=== PATIENT | female | born 1970 | race Hispanic/Latino ===

== ENCOUNTER 2017-04-09 10:50 | Outpatient (CLI) | payer OTHER ==
[2017-04-09 12:18] LABS: Urine Drugs of Abuse Note Disclamer
[2017-04-09 12:28] LABS: Bilirubin,Urine NEG (Negative); Blood,Urine NEG (Negative); Ketones,Urine NEG (Negative); Leukocyte Esterase,Urine NEG (Negative); Mucus,Urine FEW /HPF; Nitrite,Urine NEG (Negative); Urobilinogen,Urine < 2.0 mg/dL (<2.0)
[2017-04-09 13:36] LABS: Basophils % (Auto) 0.1 % (0.0-1.8); Eosinophils % (Auto) 0.9 % (0.0-4.3); Hematocrit 36.6 % (30.3-42.9); Hemoglobin 12.5 gm/dl (10.1-14.3); Mean Corpuscular HGB Conc 34 % (30-34); Mean Corpuscular Hemoglobin 31 pg (28-32); Mean Corpuscular Volume 92 fl (79-97); Platelet Count 198 K/mm3 (140-440); Red Blood Count 3.98 M/mm3 (3.65-5.03); White Blood Count 10.8 K/mm3 (4.5-11.0)
[2017-04-09 14:07] LABS: HIV-1 Antigen p24 Non React (Non React); HIVR-1/2 Ab Non React (Non React)
--- NOTE | 2017-04-09 14:29 | Ultrasound Report ---
BIOPHYSICAL PROFILE: 2 - breathing movements 2 - movements 2 - posture and tone 2 - Qualitative amniotic fluid volume 8 - TOTAL SCORE OF POSSIBLE 8 Heart Rate (bpm) 125
--- NOTE | 2017-04-09 14:48 | Ultrasound Report ---
Gestation: single Position: cephalic Amniotic Fluid: NIMESH = 14.9 cm Placenta: fundal Placental Grade: 2 Heart Rate: 125 BPM BPD: 9.1 cm = 36 w 5 d HC: 34 cm = 39 w 1 d AC: 30.3 cm = 34 w 2 d FL: 6.8 cm = 35 w 2 d HC/AC Ratio: 1.12 Cephalic Index: 79.4 Estimated Weight: 2650 grams Clinical age = 38 w 3 d EDC: 04/18/2017 US Gest. Age = 36 w 3 d EDC: 05/04/17
[2017-04-09 15:09] LABS: HIV-1 Antigen p24 Non React (Non React); HIVR-1/2 Ab Non React (Non React)
== END 2017-04-09 17:14 | disposition home or self-care (01) ==
LOC: TRG 10:50
PROVIDERS: ATTEND Obstetrics & Gynecology
DX: O09.523 Supervision of elderly multigravida, third trimester (principal); O36.0930 Maternal care for other rhesus isoimmunization, third trimester, not applicable or unspecified; O47.1 False labor at or after 37 completed weeks of gestation; Z3A.38 38 weeks gestation of pregnancy
CPT/HCPCS: 36415; 59025; 76816; 76819; 80074; 80307; 81001; 82962; 85025; 85461; 86592; 86762; 86850; 86900; 86901; 87806; 96372; J2790

== ENCOUNTER 2017-04-14 23:22 | Outpatient (CLI) | payer OTHER ==
[2017-04-14 23:47] VITALS: BP 121/79
--- NOTE | 2017-04-15 09:57 | Ultrasound Report ---
Gestation: single Position: cephalic Amniotic Fluid: NIMESH = 8.2 cm Placenta: fundal Placental Grade: 2 Heart Rate: 123 BPM Anatomy: Stomach Kidneys Bladder Diaphragm 4 Chamber Heart Heart 3 Vessel Cord SPINE VISUALIZED: Longitudinal Transverse Limited spine due to position The following are not demonstrated due to maternal body habitus BPD: 9.2 cm = 37 w 3 d HC: 34.1 cm = 39 w 2 d AC: 31.7 cm = 35 w 4 d FL: 7.2 cm = 37 w 0 d HC/AC Ratio: 1.08 Cephalic Index: 79.7 Estimated Weight: 2972 grams LMP: 07/12/16 Clinical age = 39 w 4 d EDC: 04/18/17 US Gest. Age = 37 w 2 d EDC: 05/04/17
== END 2017-04-15 01:10 | disposition home or self-care (01) ==
LOC: TRG 23:22
PROVIDERS: ATTEND Obstetrics & Gynecology
DX: O09.523 Supervision of elderly multigravida, third trimester (principal); O62.9 Abnormality of forces of labor, unspecified; Z3A.39 39 weeks gestation of pregnancy
CPT/HCPCS: 76805

== ENCOUNTER 2017-04-15 14:46 | Inpatient (IN) | payer OTHER ==
--- NOTE | 2017-04-15 15:11 | History and Physical Report ---
History of Present Illness Date of examination: 04/15/17 Chief complaint: Delivered, no care History of present illness: This is a 46-year-old female 3 now para 2 who works with traveling [employer] who presented to triage complaining of contractions since this morning. She was immediately placed in the LDR 2 and delivered a liveborn male infant. At my arrival the placenta was in the vagina and delivered spontaneously. She was evaluated at [facility] last week for labor and had an ultrasound that placed her MALGORZATA at 04/18/2017 Past History Past Medical History: no pertinent history Past Surgical History: no surgical history LIVESTOCK FEEDER History: other (she denies any history of sexually transmitted diseases) Social history: no significant social history - Obstetrical History Expected Date of Delivery: 04/18/17 Actual Gestation: 39 Week(s) 4 Day(s) : 3 Para: 2 Hx # Term Pregnancies: 2 Spontaneous Abortions: 1 Number of Living Children: 2 Medications and Allergies Allergies Allergy/AdvReac Type Severity Reaction Status Date / Time No Known Allergies Allergy Verified 04/09/17 11:26 Home Medications Medication Instructions Recorded Confirmed Last Taken Type Vit No.130/Iron/FA 1 each PO DAILY 04/09/17 04/09/17 04/09/17 07:00 History [ Tablet] - Physical Exam Breasts: Positive: deferred Lungs: Positive: Normal air movement Abdomen: Positive: normal appearance Results All other labs normal. Assessment and Plan - Patient Problems (1) 39 weeks gestation of Current Visit: Yes Status: Acute (2) Delivery normal Current Visit: Yes Status: Acute (3) No care in current Current Visit: Yes Status: Acute Qualifiers: Trimester: T (4) Advanced maternal age (AMA), 40 years or greater Current Visit: Yes Status: Acute
[2017-04-15] MEDS ORDERED: PITOCin/NS 20 UNIT/1000ML DRIP 20 UNITS/1,000 ML BAG IV PRN (15:17)
[2017-04-15] MEDS ORDERED: LANSINOH TP PRN (15:17)
[2017-04-15] MEDS ORDERED: DULCOLAX PR PRN (15:17)
[2017-04-15] MEDS ORDERED: PHENERGAN PR PRN (15:17)
[2017-04-15] MEDS ORDERED: ZOFRAN IV PRN (15:17)
[2017-04-15] MEDS ORDERED: BENADRYL PO PRN (15:17)
[2017-04-15] MEDS ORDERED: MILK OF MAGNESIA PO PRN (15:17)
[2017-04-15] MEDS ORDERED: TUCKS PAD TP PRN (15:17)
[2017-04-15] MEDS ORDERED: PHENERGAN PO PRN (15:17)
[2017-04-15] MEDS ORDERED: TYLENOL PO PRN (15:17)
--- NOTE | 2017-04-15 15:20 | Procedure Note ---
OB Delivery Note - Delivery Date of Delivery: 04/15/17 Estimated blood loss: 100cc - Vaginal Delivery presentation: vertex Intrapartum events: no care Route of delivery: Delivery placenta: spontaneous (intact) Delivery laceration: other ((R) labial abrasion, no repair required) - A at 1 minute: 8 at 5 minutes: 9 Gender: Male (7#3oz)
[2017-04-15] MEDS ORDERED: Fluarix Quad 2017-2018(36 MOS+) IM ONE (15:27)
[2017-04-15] MEDS ORDERED: SODIUM CHLORIDE FLUSH SYRINGE 10 ML IV NR (16:00)
[2017-04-15] MEDS: MOTRIN PO SCH ×2 (18:23→23:52)
[2017-04-15 20:46] LABS: Urine Drugs of Abuse Note Disclamer
[2017-04-16] MEDS: MOTRIN PO SCH ×3 (05:20→19:53)
[2017-04-16 05:30] LABS: Hematocrit 31.1 % (30.3-42.9); Hemoglobin 10.8 gm/dl (10.1-14.3)
[2017-04-16] MEDS ORDERED: BOOSTRIX IM ONE (06:00)
--- NOTE | 2017-04-16 06:55 | Discharge Summary ---
Providers - Providers Date of Admission: 04/15/17 14:47 Date of discharge: 04/16/17 (pt may go D/C pending baby's d/c) Attending physician: AGUEDA BEGUM 04/15/17 Consult to Case Management [CONS] Routine Services Needed at Discharge: Volunteer Patient Representative Comment:: No care 04/15/17 15:19 Consult to Seismograph Observer [CONS] Routine Reason For Exam: assistance with , SNS Primary care physician: AGUEDA BEGUM Hospitalization Reason for admission: active labor Delivery: Episiotomy: none Laceration: none Incision: normal Other procedures: none complications: none Discharge diagnosis: IUP at term delivered [place] baby: male Hospital course: uncomplicated precipitous delivery Pt OOB to toilet No c/o voiced Desires d/c FF below umb Lochia small Perineum intact H&H 05/13 No symptoms anemia. Doing well vag delivery P: d/c with instructions Pt's states they will f/u with providers in [place], that is where their family lives. Instructed to call to schedule circumcision and for pt to f/u in 4-6 week. D/C today pending release of NB. All questions addressed. Condition at discharge: Good Disposition: DC-01 TO HOME OR SELFCARE - Discharge Diagnoses (1) Delivery normal Status: Acute Comment: f/u 4-6 weeks Plan - Discharge Medications Prescriptions: Lidocain2.5%/Prilocai2.5% [Emla] 5 gm TP ONCE #1 tube - Provider Discharge Summary Activity: routine, no sex for 6 weeks, no heavy lifting 4 weeks, no strenuous exercise Diet: routine Instructions: routine Additional instructions: [] Smoking cessation referral if applicable(refer to patient education folder for contact #) [] Refer to [facility] Booklet Call your doctor immediately for: * Fever > 100.5 * Heavy vaginal bleeding ( >1 pad per hour) * Severe persistent headache * Shortness of breath * Reddened, hot, painful area to leg or breast * Drainage or odor from incision. * Keep incision clean and dry at all times and follow doctor's instructions regarding bathing/showering - Follow up plan Follow up: AGUEDA BEGUM MD [Primary Care Provider] - 7 Days (Congratulations! Please call [phone] to schedule your visit in 4 weeks and your son's circumcision in 1 week, if you are still located in our area. Bring the EMLA cream with you to his visit. Take medications as prescribed. Call with concerns.)
[2017-04-16] MEDS ORDERED: DEPO-PROVERA (CONTRACEPTION) IM NR ×2 (07:30→18:00)
[2017-04-16] MEDS ORDERED: Fluarix Quad 2017-2018(36 MOS+) IM ONE (12:00)
[2017-04-17] MEDS: MOTRIN PO SCH ×2 (02:10→18:23)
[2017-04-17] MEDS ORDERED: DEPO-PROVERA (CONTRACEPTION) IM ONE ×2 (08:00→18:07)
[2017-04-17 16:50] VITALS: BP 115/70
== END 2017-04-17 18:28 | disposition home or self-care (01) | DRG 775 ==
LOC: LD 14:46 → TRG 14:46 → LD 14:47 → TRG 14:47 → OB 17:59
PROVIDERS: ADMIT Obstetrics & Gynecology; ATTEND Obstetrics & Gynecology
PROC: 10E0XZZ Delivery of Products of Conception, External Approach (ICD-10-PCS; principal; 2017-04-15)
PROC: 3E0234Z Introduction of Serum, Toxoid and Vaccine into Muscle, Percutaneous Approach (ICD-10-PCS; 2017-04-15)
DX: O62.3 Precipitate labor (principal); O09.523 Supervision of elderly multigravida, third trimester; Z3A.39 39 weeks gestation of pregnancy; O70.0 First degree perineal laceration during delivery; Z23 Encounter for immunization
CPT/HCPCS: 36415; 80307; 85014; 85018; 85461; 86850; 86900; 86901; 88307; 90471; 90686; 90715; 99211; A6250; G0463; J1050; J2590